=== PATIENT | female | born 1950 | race Caucasian/White ===

== ENCOUNTER 2020-12-28 07:04 | Emergency (ER) | payer MEDICARE | END 2020-12-28 08:57 | disposition home or self-care (01) | LOC: BURERS 07:04 | DX: J06.9 Acute upper respiratory infection, unspecified (principal); I10 Essential (primary) hypertension; E78.00 Pure hypercholesterolemia, unspecified; Z79.899 Other long term (current) drug therapy | CPT/HCPCS: 71046 ==